=== PATIENT | female | born 1980 | race Caucasian/White ===

== ENCOUNTER 2020-08-16 13:41 | Outpatient (REF) | payer BC, SELFPAY | END 2020-08-16 13:42 | disposition home or self-care (01) | LOC: HO.HMGCLDS 13:41 | PROVIDERS: Visit Provider Internal Medicine | DX: Z20.828 Contact with and (suspected) exposure to other viral communicable diseases (principal) | CPT/HCPCS: C9803; U0003 ==

== ENCOUNTER 2020-09-13 14:26 | Outpatient (REF) | payer BC, OTHER, SELFPAY ==
[2020-09-13 14:54] LABS: COVID-19 Test Negative (Negative)
== END 2020-09-13 14:27 | disposition home or self-care (01) ==
LOC: HO.EMPCOV 14:26
PROVIDERS: Visit Provider Internal Medicine
DX: Z20.828 Contact with and (suspected) exposure to other viral communicable diseases (principal)
CPT/HCPCS: 87635; C9803

== ENCOUNTER 2020-09-26 14:16 | Outpatient (REF) | payer BC, SELFPAY | END 2020-09-26 14:17 | disposition home or self-care (01) | LOC: HO.HMGCLDS 14:16 | PROVIDERS: Visit Provider Internal Medicine | DX: Z20.828 Contact with and (suspected) exposure to other viral communicable diseases (principal) | CPT/HCPCS: C9803; U0003 ==

== ENCOUNTER 2020-10-21 11:03 | Outpatient (REF) | payer OTHER, SELFPAY ==
[2020-10-21 11:20] LABS: COVID-19 Test Negative (Negative)
== END 2020-10-21 11:04 | disposition home or self-care (01) ==
LOC: HO.EMPCOV 11:03
PROVIDERS: Visit Provider Internal Medicine
DX: Z20.822 Contact with and (suspected) exposure to COVID-19 (principal)
CPT/HCPCS: 36415; 87635; C9803

== ENCOUNTER 2020-12-23 10:35 | Outpatient (REF) | payer BC, SELFPAY | END 2020-12-23 10:36 | disposition home or self-care (01) | LOC: HO.HMGCLDS 10:35 | PROVIDERS: Visit Provider Internal Medicine | DX: Z20.822 Contact with and (suspected) exposure to COVID-19 (principal) | CPT/HCPCS: 36415; C9803; U0003; U0005 ==

== ENCOUNTER 2020-12-24 07:59 | Outpatient (REF) | payer BC, SELFPAY ==
--- NOTE | ~2020-12-24 | XR_ITS ---
EXAMINATION: XR CHEST CLINICAL INFORMATION: Shortness of breath COMPARISON: None TECHNIQUE: 2 views of the chest were obtained. FINDINGS: The lungs are well-expanded and clear. The heart size and pulmonary vascularity is normal. No gross bony abnormality seen. There are surgical elizabeth in the right lung apex from previous intervention. XR/XR chest 2V IMPRESSION: Unremarkable chest exam.
== END 2020-12-24 08:00 | disposition home or self-care (01) ==
LOC: HO.HMGCX 07:59
PROVIDERS: Visit Provider Nurse Practitioner Family
DX: R06.02 Shortness of breath (principal)
CPT/HCPCS: 71046

== ENCOUNTER 2021-01-02 11:14 | Outpatient (REF) | payer BC, SELFPAY ==
[2021-01-02 12:42] LABS: COVID-19 Test Negative (Negative); IDNOW Serial# 55D5AD1C
== END 2021-01-02 11:15 | disposition home or self-care (01) ==
LOC: HO.EMPCOV 11:14
PROVIDERS: Visit Provider Internal Medicine
DX: Z20.822 Contact with and (suspected) exposure to COVID-19 (principal)
CPT/HCPCS: 36415; 87635; C9803

== ENCOUNTER 2021-09-29 13:18 | Outpatient (REF) | payer BC, SELFPAY | END 2021-09-29 13:19 | disposition home or self-care (01) | LOC: HO.HMGCLDS 13:18 | PROVIDERS: Visit Provider Internal Medicine | DX: Z20.822 Contact with and (suspected) exposure to COVID-19 (principal) | CPT/HCPCS: C9803; U0003; U0005 ==

== ENCOUNTER 2025-02-22 09:26 | Emergency (ER) | payer BC, SELFPAY ==
--- NOTE | ~2025-02-22 | CT_ITS ---
EXAMINATION: CT HEAD WITHOUT IV CONTRAST HISTORY: pain behind R eye, hx leukemia. TECHNIQUE: Unenhanced helical CT of the head was performed per standard departmental protocol. Coronal and sagittal reformats of the head were also evaluated. One or more of the following techniques was used for dose reduction: Automated exposure control, adjustment of the mA and/or kV according to patient size, use of iterative reconstruction technique. DLP: 506 mGy-cm COMPARISON: Comparison is made with the prior examination dated 07/12/2017. FINDINGS: BRAIN: The brain parenchyma is unremarkable. There is normal arredondo/white differentiation. The ventricular system is normal in size and configuration. There is no mass effect or midline shift. No intra- or extra-axial fluid collections are identified. SINUSES: The visualized paranasal sinuses are clear. The mastoid air cells and middle ear cavities are well pneumatized. ORBITS: The visualized orbits are unremarkable, although the entire orbits are not imaged. BONES/SOFT TISSUES: The extracranial soft tissues are unremarkable. The calvarium is intact. No suspicious lytic or sclerotic lesions. CT/CT head/brain wo IV con IMPRESSION: No acute intracranial abnormality. Electronically signed by: Ga Salguero MD 02/22/2025 12:43 PM EDT
[2025-02-22 09:29] VITALS: BP 100/68; PULSE 95; RESP 16; TEMP 36.2; O2SAT 100; BMI 21.2
--- NOTE | 2025-02-22 09:37 | ED.HA ---
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 Reports pain is primarily behind her right eye. No radiation. Describes pain as sharp and constant in character. She denies any photophobia or phonophobia. Denies history of migraine headaches. She has been trying Tylenol and Aleve for the pain without improvement. Aside from the pain behind her right eye, she denies any vision changes. No trauma or injury to the eye. 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 She follows regularly with journeyman tool [facility] die [facility]. She last saw them just 2-3 months ago with normal workup. She does use artificial tears daily. Related Data Previous Rx's ?Medication ?Instructions ?Recorded tizanidine 2 mg capsule 2 mg PO BEDTIME PRN muscle 12/24/20 spasticity 20 days #20 caps qrfajmjhne-qmsaldayjxwiz-kxggymop 1 tab PO Q4-6H PRN pain (scale 02/22/25 50 mg-325 mg-40 mg tablet score 7-10) #12 tabs Allergies Allergy/AdvReac Type Severity Reaction Status Date / Time No Known Allergies Allergy Verified 02/22/25 09:30 Review of Systems Review of Systems: Yes all other systems are reviewed and are negative PMFSH Past Medical History Attestation statement: The following information was validated with the patient. Source: old records reviewed and nursing notes reviewed Physical Exam Vital Signs: Vital Signs: Last Vital Signs Temp 97.5 F 02/22/25 14:53 Pulse 66 02/22/25 14:53 Resp 16 02/22/25 14:53 BP 110/70 02/22/25 14:53 Pulse Ox 100 02/22/25 14:53 O2 Del Method Room Air 02/22/25 14:53 BMI result Body Mass Index 21.2 vital signs stable, afebrile General: Well appearing, in no acute distress. Skin: Warm, dry, intact. No rashes or lesions. Head: Normocephalic, atraumatic. EENT: Hearing is intact b/l. Moist mucous membranes.?No periorbital swelling. No enophthalmous or exopthalmous. EOMs intact without pain or entrapment. PERRLA. No photophobia. No obvious foreign body or abrasion. No conjunctival injection or chemosis. No hazy cornea. IOP OD 16, IOP OS 16. Neck: Supple without LAD Cardiac: Chest wall symmetric. RRR Lungs: Normal respiratory effort without accessory muscle use. CTA bilaterally. Back: No midline spinous or paraspinal tenderness. No step off deformity. Ext: Upper and lower extremities atraumatic, without tenderness, deformity, swelling or erythema. Neuro: AOx3. Normal speech. NIH 0. Strength 5/5 intact throughout. Sensation intact to light touch. NV intact distally. normal finger to nose, heel to santana, ambulating with steady gait Course Course Course Narrative: CBC without leukocytosis or left shift. No anemia. H&H stable. Chemistry without acute electrolyte abnormality requiring intervention. No NGUYEN. Normal liver function. Inflammatory markers WNL - GCA unlikely. CT head/brain unremarkable. > minimal improvement with migraine cocktail. > fioricet given with improvement. She longer has sharp sensation behind right eye. Now just a dull ache. > Given unremarkable workup, will send Fioricet to pharmacy for patient to take over the next few days. Educated on possible rebound headache. Advised follow up with PCP and journe[facility] tool and [employer] [facility] for further workup. patient is agreeable with this. Patient has remained stable throughout ED visit today. Discussed worrisome signs and symptoms and when to return to the ED. All questions answered at this time. Patient is agreeable with disposition and stable for discharge. Medications Administered Discontinued Medications Generic Name Dose Route Start Last Admin Trade Name Freq PRN Reason Stop Dose Admin Acetaminophen/Butalbital/Caffeine 1 tab 02/22/25 12:54 02/22/25 13:39 Butalb/Acetamin/Caff 50/325/40 Tablet PO 02/22/25 12:55 1 tab ONCE ONE Administration Diphenhydramine HCl 25 mg 02/22/25 10:26 02/22/25 11:26 Diphenhydramine Hcl 50 Mg/Ml Vial IVPUSH 02/22/25 10:27 25 mg ONCE ONE Administration Sodium Chloride 1,000 mls @ 999 mls/hr 02/22/25 10:30 02/22/25 12:35 Ns IV 02/22/25 11:30 Infused .Q1H1M NELLY Infusion Ketorolac Tromethamine 30 mg 02/22/25 10:26 02/22/25 11:23 Ketorolac Tromethamine 30 Mg/Ml Vial IVPUSH 02/22/25 10:27 30 mg ONCE ONE Administration Metoclopramide HCl 10 mg 02/22/25 10:26 02/22/25 11:19 Metoclopramide Hcl 10 Mg/2 Ml Vial IVPUSH 02/22/25 10:27 10 mg ONCE ONE Administration Medical Decision Making Medical Decision Making [facility] Narrative: 44-year-old female with pmhx significant for leukemia and 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 vital signs stable, afebrile. she is well appaering and in NAD. on exam, No periorbital swelling. No enophthalmous or exopthalmous. EOMs intact without pain or entrapment. PERRLA. No photophobia. No obvious foreign body or abrasion. No conjunctival injection or chemosis. No hazy cornea. IOP OD 16, IOP OS 16. Exam is nonfocal. Differential diagnosis includes anemia, electrolyte abnormality, dehydration, viral syndrome, migraine vs tension type headache, occular migraine, occipital neuralgia. No headache red flags. Neurologic exam without evidence of meningismus. No focal neurologic findings. Presentation not consistent with acute intracranial bleed including SAH. Presentation not consistent with acute [employer] infection including meningitis or brain abscess. Temporal arteritis unlikely, as is acute angle closure glaucoma given history and physical findings. Presentation not consistent with other acute, emergent causes of headache at this time. Plan to treat symptomatically with pain medication. No indication for LP at this time. Plan: labs, viral swabs, pain control, CT brain, reassessment Differential Diagnosis Differential Diagnoses: The differential diagnosis associated with the presentation includes as above. Admission/Observation not indicated. Lab Data [facility] Lab Attestation statement: I reviewed the patient's lab results. as above. 02/22/25 10:40 02/22/25 10:40 Labs: Lab Results 02/22/25 Range/Units 10:40 WBC 5.2 (4.8-10.8) X10*3/uL RBC 3.98 L (4.20-5.50) X10*6/uL Hgb 12.7 (12.0-16.0) g/dl Hct 37.9 (37.0-47.0) % MCV 95.2 (80.0-98.0) fL MCH 31.9 (27.0-33.0) pg MCHC 33.5 (31.0-35.0) g/dl RDW 13.2 (11.0-16.0) % Plt Count 146 L (160-400) X10*3/uL MPV 9.4 (9.4-12.3) fL Immature Gran % (Auto) 0.2 (0.0-0.4) % Neut % (Auto) 61.7 (45-73) % Lymph % (Auto) 26.2 (20-40) % Assumption % (Auto) 10.9 (2-11) % Eos % (Auto) 0.8 (0-4) % Baso % (Auto) 0.2 (0-2) % Lymph # (Auto) 1.4 (1.2-4.9) X10*3/uL Assumption # (Auto) 0.6 (0.1-1.2) X10*3/uL Eos # (Auto) 0.0 (0.0-0.4) X10*3/uL Baso # (Auto) 0.0 (0.0-0.2) X10*3/uL Abs Immat Gran (auto) 0.01 (0.00-0.03) X10*3/uL Absolute Neuts (auto) 3.2 (2.0-8.3) x10*3/uL Absolute Nucleated RBC 0.000 (0.0-0.012) X10*3/uL Nucleated RBC % (auto) 0.0 (0.0-0.2) /100WBC ESR 8 (0-20) MM/HR Sodium 138 (135-145) mmol/L Potassium 4.3 (3.3-5.1) mmol/L Chloride 106 (96-108) mmol/L Carbon Dioxide 26 (22-29) mmol/L Anion Gap 10 L (12-20) BUN 8 L (9-16) mg/dL Creatinine 0.64 (0.5-1.4) mg/dL Estim Creat Clear Calc 105.0 Estimated GFR > 60 Random Glucose 91 (60-115) mg/dL Calcium 9.8 (8.4-10.2) mg/dL Magnesium 2.0 (1.6-2.6) mg/dL Total Bilirubin 0.3 (0.0-1.0) mg/dL AST 22 (5-31) U/L ALT 14 (0-31) U/L Alkaline Phosphatase 54 (39-117) U/L C-Reactive Protein 0.16 (< or = 0.50) mg/dL Total Protein 6.9 (6.5-8.0) g/dL Albumin 4.5 (3.5-5.0) g/dL Beta HCG, Quant < 2 mIU/mL Independent Interpretation I performed an independent interpretation of an: CT Scan Interpretation: CT head/brain without mass Radiology Impression Discussion of test interpretation with radiology: I have reviewed the radiologist's reading. Radiologist Impression: Procedure(s): CT head/brain wo IV con Accession Number(s): [id number] cc: Jonas Daigle MD; More Cross~ Report Number: [id number]: Total DLP = 506.00 mGy-cm EXAMINATION: CT HEAD WITHOUT IV CONTRAST HISTORY: pain behind R eye, hx leukemia. TECHNIQUE: Unenhanced helical CT of the head was performed per standard departmental protocol. Coronal and sagittal reformats of the head were also evaluated. One or more of the following techniques was used for dose reduction: Automated exposure control, adjustment of the mA and/or kV according to patient size, use of iterative reconstruction technique. DLP: 506 mGy-cm COMPARISON: Comparison is made with the prior examination dated 07/12/2017. FINDINGS: BRAIN: The brain parenchyma is unremarkable. There is normal arredondo/white differentiation. The ventricular system is normal in size and configuration. There is no mass effect or midline shift. No intra- or extra-axial fluid collections are identified. SINUSES: The visualized paranasal sinuses are clear. The mastoid air cells and middle ear cavities are well pneumatized. ORBITS: The visualized orbits are unremarkable, although the entire orbits are not imaged. BONES/SOFT TISSUES: The extracranial soft tissues are unremarkable. The calvarium is intact. No suspicious lytic or sclerotic lesions. CT/CT head/brain wo IV con IMPRESSION: No acute intracranial abnormality. Electronically signed by: Ga Salguero MD 02/22/2025 12:43 PM EDT RP Independent Historian Clinical information obtained from an independent historian. History obtained from or confirmed by: Spouse () External Record Review External record reviewed: Inpatient record Prescription Management I considered prescription management with: Pain Medication Social Determinants Patient?s care significantly limited by Social Determinants of Health including: Other Social Determinant of Health Critical Care Time Critical Care Time Critical Care Time: No Discharge Plan Discharge Clinical Impression: Headache Patient Disposition: Home, Self-Care Instructions: General Headache (ED) Additional Instructions: You have been evaluated in the Emergency Department today for headache. Your evaluation did not show evidence of medical conditions requiring emergent intervention at this time, and your pain improved with medication in the ED. Sometimes it is difficult to explain the cause of headache but the negative workup today is reassuring. I want you to take the following medications together every 4-6 hours as needed for headache. - Fioricet After you take this medication, lie down in a dark quiet room and try to fall asleep. do not use this medication for more than 2-3 days as it can cause rebound headaches Please follow up with your primary care physician and journeyman tool and die maker in 1 week. Return to the Emergency Department if you experience worsening or uncontrolled pain, vision changes, recurrent vomiting, difficulty with normal activities, abnormal behavior, difficulty walking, numbness, weakness, or any other concerning symptoms. Prescriptions: New nzzxvzsykz-uonzgkhdkwwrd-vokr 50-325-40 mg tablet 1 tab PO Q4-6H PRN (Reason: pain (scale score 7-10)) Qty: 12 0RF No Action tizanidine 2 mg capsule 2 mg PO BEDTIME PRN (Reason: muscle spasticity) 20 Days Qty: 20 0RF Referrals: Jonas Daigle MD [Primary Care Provider] - Interventions: ED Discharge Assessment Last Done: 02/22/25 14:53 Discharge Date/Time: 02/22/25 14:59 Print Language: Setswana
--- OUTSIDE RECORDS SUMMARY | 2025-02-22 10:10 | XMS_ITS ---
Author Name [facility] Organization Unknown Care Team Organization Name Specialty Phone Email Start Date End Da [facility] 08/11/2024
[2025-02-22 10:46] LABS: MANUAL DIFF FLAG NO
[2025-02-22 10:49] LABS: Basophils Percent Auto 0.2 % (0-2); Eosinophils Percent Auto 0.8 % (0-4); Hematocrit 37.9 % (37.0-47.0); Hemoglobin 12.7 g/dl (12.0-16.0); Imm Gran Abs Auto 0.01 X10*3/uL (0.00-0.03); Imm Gran Pct Auto 0.2 % (0.0-0.4); Lymphocytes Absolute Auto 1.4 X10*3/uL (1.2-4.9); Lymphocytes Percent Auto 26.2 % (20-40); Mean Corpuscular HGB Conc 33.5 g/dl (31.0-35.0); Mean Corpuscular Hemoglobin 31.9 pg (27.0-33.0); Mean Corpuscular Volume 95.2 fL (80.0-98.0); Mean Platelet Volume 9.4 fL (9.4-12.3); Monocytes Absolute Auto 0.6 X10*3/uL (0.1-1.2); Monocytes Percent Auto 10.9 % (2-11); Neutrophils Absolute Auto 3.2 x10*3/uL (2.0-8.3); Neutrophils Percent Auto 61.7 % (45-73); Platelet Count 146 X10*3/uL (160-400); Red Blood Count 3.98 X10*6/uL (4.20-5.50); Red Cell Distribution Width 13.2 % (11.0-16.0); White Blood Count 5.2 X10*3/uL (4.8-10.8)
[2025-02-22 11:01] LABS: Alanine Aminotransferase 14 U/L (0-31); Albumin Level 4.5 g/dL (3.5-5.0); Alkaline Phosphatase 54 U/L (39-117); Anion Gap 10 (12-20); Aspartate Amino Transferase 22 U/L (5-31); Bilirubin Total 0.3 mg/dL (0.0-1.0); Blood Urea Nitrogen 8 mg/dL (9-16); C Reactive Protein 0.16 mg/dL (< or = 0.50); Calcium 9.8 mg/dL (8.4-10.2); Carbon Dioxide 26 mmol/L (22-29); Chloride 106 mmol/L (96-108); Estimated Glomerular Filt Rate > 60; Glucose Random 91 mg/dL (60-115); Potassium 4.3 mmol/L (3.3-5.1); Sodium 138 mmol/L (135-145); Total Protein 6.9 g/dL (6.5-8.0)
[2025-02-22 11:12] VITALS: BP 97/62; PULSE 69; RESP 16; TEMP 36.2; O2SAT 100
[2025-02-22] MEDS: Metoclopramide HCl 10 MG/2 ML VIAL IVPUSH (11:19)
[2025-02-22] MEDS: Ketorolac Tromethamine 30 MG/ML VIAL IVPUSH (11:23)
[2025-02-22] MEDS: diphenhydrAMINE HCL 50 MG/ML VIAL 25 MG IVPUSH (11:26)
[2025-02-22] MEDS: 0.9 % Sodium Chloride 1,000 ML 999 ML IV (11:31)
[2025-02-22 11:33] LABS: Erythrocyte Sedimentation Rate 8 MM/HR (0-20)
[2025-02-22 11:59] LABS: HCG Quantitative < 2 mIU/mL
[2025-02-22] MEDS: Butalb/Acetamin/Caff 50/325/40 TABLET 1 TAB PO (13:39)
[2025-02-22 14:00] VITALS: BP 110/70; PULSE 66; RESP 16; TEMP 36.4; O2SAT 100
[2025-02-22 14:53] VITALS: BP 110/70; PULSE 66; RESP 16; TEMP 36.4; O2SAT 100
== END 2025-02-22 14:59 | disposition home or self-care (01) ==
PROVIDERS: Physician Assistant Medical; Emergency Provider Emergency Medicine Emergency Medical Services; PCP Family Medicine
DX: R51.9 Headache, unspecified (principal); H57.11 Ocular pain, right eye; Z85.6 Personal history of leukemia; Z79.899 Other long term (current) drug therapy
CPT/HCPCS: 36415; 70450; 80053; 83735; 84702; 85025; 85652; 86140; 96361; 96374; 96375; 99284; 99285; J1200; J1885; J2765

== ENCOUNTER → 2025-02-22 10:38 | Outpatient (BNV) | payer BC, SELFPAY | PROVIDERS: Emergency Provider Emergency Medicine Emergency Medical Services; PCP Family Medicine; Visit Provider Radiology Diagnostic Radiology | DX: R51.9 Headache, unspecified (principal); H57.11 Ocular pain, right eye; Z85.6 Personal history of leukemia | CPT/HCPCS: 70450 ==

== ENCOUNTER 2025-02-24 13:09 | Emergency (ER) | payer BC, SELFPAY ==
--- NOTE | ~2025-02-24 | CT_ITS ---
CLINICAL HISTORY: headache, please eval for venous sinus thrombosis CT head with contrast Comparison: CT/NE/SR - CT HEAD/BRAIN WO IV CON - 02/22/25 12:04 EDT Findings: No intra-axial mass, midline shift, hydrocephalus, or extra-axial fluid collection. No significant atrophy-like change or white matter disease. No abnormal enhancement. Normal enhancement of the superior sagittal sinus, straight sinus, confluence and bilateral transverse sinuses and sigmoid sinuses with no evidence of thrombosis. Right transverse sinus somewhat larger than the left and this is developmental. There is no sinus or mastoid fluid. The orbits are within normal limits. No acute skull fracture. IMPRESSION: 1. No acute intracranial findings. No evidence of venous sinus thrombosis. This document has been electronically signed by: Dina Childs MD on 02/24/2025 17:41:44
[2025-02-24 13:14] VITALS: BP 95/64; PULSE 78; RESP 14; TEMP 36.5; O2SAT 100; BMI 20.9
--- NOTE | 2025-02-24 13:15 | ED_ITS ---
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 This was about 3 years ago. She has done well and has been taken off prednisone and tacrolimus. Her chemotherapy treatment apparently produced early menopause and she is maintained on hormone replacement therapy. This is her only medication at this point. The patient is here for evaluation of a headache. She has been here 2 days ago with the same complaint. The patient says that she does not have a history of headaches. She says that 4 days ago, on WednesdayFebruary 20 she woke up at 05:00 with a headache. The headache was primarily on the right side of her head. To some degree she also felt it behind her eye. She had not done anything unusual the day before. The day before has been . She said she had done very little for the whole weekend. she had done some gardening at home but nothing strenuous or unusual. She had not had any alcohol. She says that on the day the headache began she had 1st woke up at 05:00 with a headache. It was unusual for her to have a headache so she tried to go back to sleep. She slept and then woke up again at 07:00 with a headache persistent. She put up with a headache on Wednesday and Wednesday. Two days ago on she came to the emergency room because of the headache. She had a negative head CT. She also had unremarkable labs with a normal white count and differential, a normal CRP and a normal ESR. she was not febrile. She was treated empirically with a migraine cocktail of IV metoclopramide, ketorolac, and diphenhydramine. She says this really did seem to help her headache symptoms at all. She was then given a dose of Fioricet which gave some mild relief. She was discharged at that point. She says that since then she has continued to have a right-sided headache. She says that she also has some photophobia and some nausea. She has also had some sensitivity to noise.She has not vomited. She has not had any sense of neck stiffness. Her used some kind of topical temperature measuring device and he says that today she had a temperature of 100.7 degrees. No sore throat. No cough or sputum. She returned to the hospital today because of the persistence of the headache which she rates as a 10/10. She feels the pain exclusively on the right side of her head. She feels the pain behind her right eye as well. She does not have any pain in the eye itself. No ocular pain. She has photophobia but she has no sense that her vision is any different than usual. She does not have any abnormal visual phenomenon. Related Data Previous Rx's ?Medication ?Instructions ?Recorded tizanidine 2 mg capsule 2 mg PO BEDTIME PRN muscle 12/24/20 spasticity 20 days #20 caps aszxpbsien-csmxmgfowxsgi-kiytwowc 1 tab PO Q4-6H PRN pain (scale 02/22/25 50 mg-325 mg-40 mg tablet score 7-10) #12 tabs prochlorperazine maleate 10 mg 10 mg PO Q6H PRN nausea and 02/24/25 tablet vomiting #10 tabs Allergies Allergy/AdvReac Type Severity Reaction Status Date / Time No Known Allergies Allergy Verified 02/24/25 13:16 Review of Systems 2 Review of Systems: Yes all other systems are reviewed and are negative Physical Exam ED Vital Signs: Vital Signs - 24 hr 02/24/25 13:14 02/24/25 15:39 02/24/25 18:23 Temperature 97.7 F 0 F L Pulse Rate 78 68 67 Respiratory Rate 14 14 16 Blood Pressure 95/64 101/68 99/62 Pulse Oximetry 100 100 99 Oxygen Delivery Method Room Air Room Air Room Air BMI result Body Mass Index 20.9 Const Other: The patient was in a darkened room. She was wearing sunglasses. She was awake and alert with a normal mental status. She has a subdued demeanor but does not seem toxic in any way.. HENMT Other: Face is symmetrical. Mucous membranes moist. The pharynx is unremarkable. Tympanic membranes are normal bilaterally. Eyes Other: Pupils are round, equal, and reactive to light, extraocular movements are intact. Conjunctivae are clear. Eyes appear completely normal. General: appearance normal, both eyes and all related structures Neck Neck: Yes normal visual inspection, Yes full ROM, Yes no lymphadenopathy and Yes no meningeal signs Resp Effort & Inspection: normal respiratory effort Auscultation: clear to auscultation bilaterally Cardio Rate: regular rate Rhythm: regular rhythm Heart sounds: S1 normal heart sound present and S2 normal heart sound present Skin Other: Skin is dry and unremarkable, no rash Neuro Other: the patient is awake and alert. She seems photophobic but has a normal mental status. She has a supple neck. Pupils are round equal and reactive to light. Extraocular movements are intact. The face is symmetrical. Speech is clear. She moves her extremities normally. She seems to have a nonfocal neurological exam. General: no meningeal signs Extrem Other: No peripheral edema. Course Course Course Narrative: RME performed by Alecia Santamaria PA-C. Patient is a 44 year old assigned female at presenting to the emergency department with a continued / persistent headache. Detailed physical exam and review of systems are deferred to the product manager e commerce. Labs ordered. Patient placed back in the waiting room pending room availability and results. Medications Administered Discontinued Medications Generic Name Dose Route Start Last Admin Trade Name Codi PRN Reason Stop Dose Admin Dexamethasone Sodium Phosphate 8 mg 02/24/25 16:29 02/24/25 17:06 Dexamethasone Sod Phosphate 4 Mg/Ml Vial IVPUSH 02/24/25 16:30 8 mg ONCE ONE Administration Diphenhydramine HCl 25 mg 02/24/25 15:00 02/24/25 15:38 Diphenhydramine Hcl 50 Mg/Ml Vial IVPUSH 02/24/25 15:01 25 mg ONCE ONE Administration Sodium Chloride 1,000 mls @ 999 mls/hr 02/24/25 15:15 02/24/25 16:51 Ns IV 02/24/25 16:15 Infused .Q1H1M NELLY Infusion Magnesium Sulfate 2 gm in 50 mls @ 150 mls/hr 02/24/25 16:29 02/24/25 18:08 Magnesium Sulfate/H2o IV 02/24/25 16:48 Infused ONCE ONE Infusion Iohexol 100 ml 02/24/25 16:57 02/24/25 16:58 Iohexol 350 Mg/Ml 100 Ml Infus..Btl IV 02/24/25 16:58 85 ml ONCE ONE Administration Ketorolac Tromethamine 10 mg 02/24/25 15:00 02/24/25 15:34 Ketorolac Tromethamine 15 Mg/Ml Vial IVPUSH 02/24/25 15:01 10 mg ONCE ONE Administration Prochlorperazine Edisylate 10 mg 02/24/25 15:00 02/24/25 15:37 Prochlorperazine Edisylate 10 Mg/2 Ml Vial IVPUSH 02/24/25 15:01 10 mg ONCE ONE Administration Medical Decision Making Medical Decision Making [facility] Narrative: The patient is a very pleasant 44-year-old woman who presents for a 2nd time to the emergency room for evaluation of the same headache syndrome. She does not have a history of headaches. No history of migraine headaches. She has a history of leukemia which was managed with a bone marrow transplant which was apparently successful. She is not on any immunosuppressants currently. Her only medication is hormone replacement therapy with a combined estrogen/ progesterone regimen. today is the 5th day of this headache. She woke up with a headache on Wednesday morning, February 20. the headache is a unilateral headache on the right side of her head. She perceives the pain primarily behind the right eye. She has had some associated nausea but no vomiting. She does not have any pain of the eye itself and she does not have any sense that her vision in either eye is any different than usual. She feels her vision is normal. She has had no unusual visual phenomenon. She has had no neck stiffness or sense of neck stiffness. The headache was present when she awoke on February 20 and therefore she can not say if this was an abrupt onset headache. She has no specific neurological symptoms associated with this headache. The patient was here 2 days ago and had a negative head CT. The patient was treated for a possible migraine headache with metoclopramide, ketorolac, and diphenhydramine with no significant improvement. She had some minimal improvement after receiving a dose of Fioricet. She was then discharged and she returns today because of the persistence of the headache. Clinically the patient's exam does not seem remarkably concerning. She has no neck stiffness whatsoever. She has no concerning ocular or visual findings. Her mental status is normal. Her vital signs are normal. She is not hypertensive. Basic labs were unremarkable with a normal white count and unremarkable differential. She has a normal CRP and ESR. The patient was treated initially with prochlorperazine, ketorolac, diphenhydramine, and IV fluids. She had possibly mild improvement in her headache from a 10/10 to a 6/10. Given her history of leukemia and also her history of hormone replacement therapy by thought it would be reasonable to ensure that she did not have a venous sinus thrombosis as a cause of her headache and so ordered a CT of the head with IV contrast. She was also at that point given 8 mg of IV dexamethasone and 2 g of IV magnesium. The CT with IV contrast was negative. At that point I had discussed the possibility of doing a spinal tap as well. However she reported significant improvement in her headache at that time after receiving the dexamethasone and magnesium. Given that she felt better and looked better by ultimately did not feel that a spinal tap was required at this point. I do not think her history of this headache or her physical exam is highly suggestive of a subarachnoid hemorrhage. I do not think her history or physical exam is highly suggestive of any kind of meningitis. Therefore after discussion with the patient and her I decided to defer doing a spinal tap today. The patient will be discharged. She has a local wood setter. I have recommended that she contact her wood setter on Wednesday to see if she can get an appointment to see of the wood setter has any insight into her headache etiology. Additionally she should follow up with her PCP. If she continues to feel quite bad however she should return and probably have a spinal tap. Lab Data 02/24/25 14:02 02/24/25 14:02 Labs: Lab Results 02/24/25 02/24/25 Range/Units 14:02 15:28 WBC 5.2 (4.8-10.8) X10*3/uL RBC 3.99 L (4.20-5.50) X10*6/uL Hgb 12.9 (12.0-16.0) g/dl Hct 37.9 (37.0-47.0) % MCV 95.0 (80.0-98.0) fL MCH 32.3 (27.0-33.0) pg MCHC 34.0 (31.0-35.0) g/dl RDW 13.2 (11.0-16.0) % Plt Count 158 L (160-400) X10*3/uL MPV 10.8 (9.4-12.3) fL Immature Gran % (Auto) 0.6 H (0.0-0.4) % Neut % (Auto) 66.0 (45-73) % Lymph % (Auto) 20.2 (20-40) % Guadalupe % (Auto) 12.0 H (2-11) % Eos % (Auto) 1.0 (0-4) % Baso % (Auto) 0.2 (0-2) % Lymph # (Auto) 1.0 L (1.2-4.9) X10*3/uL [place]upe # (Auto) 0.6 (0.1-1.2) X10*3/uL Eos # (Auto) 0.1 (0.0-0.4) X10*3/uL Baso # (Auto) 0.0 (0.0-0.2) X10*3/uL Abs Immat Gran (auto) 0.03 (0.00-0.03) X10*3/uL Absolute Neuts (auto) 3.4 (2.0-8.3) x10*3/uL Absolute Nucleated RBC 0.000 (0.0-0.012) X10*3/uL Nucleated RBC % (auto) 0.0 (0.0-0.2) /100WBC ESR 9 (0-20) MM/HR D-Dimer High Sensitivty < 150 NG/ML Sodium 139 (135-145) mmol/L Potassium 4.7 (3.3-5.1) mmol/L Chloride 104 (96-108) mmol/L Carbon Dioxide 26 (22-29) mmol/L Anion Gap 14 (12-20) BUN 10 (9-16) mg/dL Creatinine 1.03 (0.5-1.4) mg/dL Estim Creat Clear Calc 64.7 Estimated GFR 58 Random Glucose 107 (60-115) mg/dL Calcium 9.5 (8.4-10.2) mg/dL Magnesium 2.0 (1.6-2.6) mg/dL Total Bilirubin 0.3 (0.0-1.0) mg/dL AST 22 (5-31) U/L ALT 16 (0-31) U/L Alkaline Phosphatase 58 (39-117) U/L C-Reactive Protein 0.21 (< or = 0.50) mg/dL Total Protein 6.8 (6.5-8.0) g/dL Albumin 4.5 (3.5-5.0) g/dL Discharge Plan Discharge Clinical Impression: Headache Patient Disposition: Home, Self-Care Additional Instructions: Your testing in the emergency room today is all very reassuring from the point of view of a dangerous process. Since you are feeling better at this point I think a spinal tap is unlikely to reveal any dangerous process. Please rest and take it easy tonight. Try to get some sleep. Please plan on contacting your [place] wood setter on Wednesday to arrange a follow up appointment. I think it would be good for an wood setter to see you to ensure that they do not have any insight into your headache. Also follow up with your primary care doctor. If you have recurrence of headache you may try using the Fioricet previously prescribed in combination with ibuprofen and also with the prochlorperazine I have prescribed today. However if you have any significant worsening of your headache you should return to the emergency room for additional evaluation. Prescriptions: New prochlorperazine maleate 10 mg tablet 10 mg PO Q6H PRN (Reason: nausea and vomiting) Qty: 10 0RF No Action tizanidine 2 mg capsule 2 mg PO BEDTIME PRN (Reason: muscle spasticity) 20 Days Qty: 20 0RF vzsggfolip-jjukklnuonvap-xzkt 50-325-40 mg tablet 1 tab PO Q4-6H PRN (Reason: pain (scale score 7-10)) Qty: 12 0RF Referrals: Senait Wilder MD [Physician] - (headaches) Jonas Daigle MD [Primary Care Provider] - (headaches) Interventions: ED Discharge Assessment Last Done: 02/24/25 18:23 Discharge Date/Time: 02/24/25 18:24 Print Language: Romanian
[2025-02-24 14:21] LABS: Basophils Percent Auto 0.2 % (0-2); Eosinophils Absolute Auto 0.1 X10*3/uL (0.0-0.4); Hematocrit 37.9 % (37.0-47.0); Hemoglobin 12.9 g/dl (12.0-16.0); Imm Gran Abs Auto 0.03 X10*3/uL (0.00-0.03); Imm Gran Pct Auto 0.6 % (0.0-0.4); Lymphocytes Percent Auto 20.2 % (20-40); Mean Corpuscular Hemoglobin 32.3 pg (27.0-33.0); Mean Platelet Volume 10.8 fL (9.4-12.3); Monocytes Absolute Auto 0.6 X10*3/uL (0.1-1.2); Neutrophils Absolute Auto 3.4 x10*3/uL (2.0-8.3); Red Blood Count 3.99 X10*6/uL (4.20-5.50); Red Cell Distribution Width 13.2 % (11.0-16.0); White Blood Count 5.2 X10*3/uL (4.8-10.8)
[2025-02-24 14:22] LABS: Platelet Count 158 X10*3/uL (160-400)
[2025-02-24 14:48] LABS: Alanine Aminotransferase 16 U/L (0-31); Albumin Level 4.5 g/dL (3.5-5.0); Anion Gap 14 (12-20); Aspartate Amino Transferase 22 U/L (5-31); Bilirubin Total 0.3 mg/dL (0.0-1.0); Blood Urea Nitrogen 10 mg/dL (9-16); C Reactive Protein 0.21 mg/dL (< or = 0.50); Calcium 9.5 mg/dL (8.4-10.2); Carbon Dioxide 26 mmol/L (22-29); Chloride 104 mmol/L (96-108); Creatinine Clr Calc Pharmacy 64.7; Erythrocyte Sedimentation Rate 9 MM/HR (0-20); Estimated Glomerular Filt Rate 58; Glucose Random 107 mg/dL (60-115); Potassium 4.7 mmol/L (3.3-5.1); Sodium 139 mmol/L (135-145); Total Protein 6.8 g/dL (6.5-8.0)
[2025-02-24 14:59] LABS: Alkaline Phosphatase 58 U/L (39-117)
[2025-02-24] MEDS: 0.9 % Sodium Chloride 1,000 ML 999 ML IV (15:34)
[2025-02-24] MEDS: Ketorolac Tromethamine 15 MG/ML VIAL 10 MG IVPUSH (15:34)
[2025-02-24] MEDS: Prochlorperazine Edisylate 10 MG/2 ML VIAL IVPUSH (15:37)
[2025-02-24] MEDS: diphenhydrAMINE HCL 50 MG/ML VIAL 25 MG IVPUSH (15:38)
[2025-02-24 15:39] VITALS: BP 101/68; PULSE 68; RESP 14; O2SAT 100
[2025-02-24 15:47] LABS: D Dimer High Sensitivity < 150 NG/ML
[2025-02-24] MEDS: iohexoL 350 MG/ML 100 ML INFUS..BTL IV (16:58)
[2025-02-24] MEDS: Magnesium Sulfate/H2O 2 GM/50 ML PIGGYBACK IV (17:05)
[2025-02-24] MEDS: dexAMETHasone sod phosphate 4 MG/ML VIAL 8 MG IVPUSH (17:06)
[2025-02-24 18:23] VITALS: BP 99/62; PULSE 67; RESP 16; TEMP -17.7; TEMP 0; O2SAT 99
== END 2025-02-24 18:24 | disposition home or self-care (01) ==
PROVIDERS: Physician Assistant Medical; Emergency Provider Emergency Medicine; PCP Family Medicine
DX: R51.9 Headache, unspecified (principal); Z85.6 Personal history of leukemia
CPT/HCPCS: 36415; 70460; 80053; 83735; 85025; 85379; 85652; 86140; 96361; 96365; 96375; 99284; J0737; J1100; J1200; J1885; J3475; Q9967

== ENCOUNTER → 2025-02-24 16:31 | Outpatient (BNV) | payer BC, SELFPAY | PROVIDERS: Emergency Provider Emergency Medicine; PCP Family Medicine; Visit Provider Specialist | DX: R51.9 Headache, unspecified (principal) | CPT/HCPCS: 70460 ==

== ENCOUNTER 2025-02-25 23:25 | Emergency (ER) | payer BC, SELFPAY ==
[2025-02-25 23:27] VITALS: BP 126/75; PULSE 73; RESP 20; TEMP 36.8; O2SAT 100; BMI 20.2
--- NOTE | 2025-02-25 23:51 | ED_ITS ---
HPI - Headache General Chief Complaint: Headache Stated Complaint: severe headaches Time Seen by Provider: 02/25/25 23:40 Source: patient Mode of arrival: ambulatory Limitations: no limitations History of Present Illness ED Provider: HPI Narrative: Patient with history of leukemia in remission for last 2 years has been having headache for last 1 week localized to the right forehead been here 2 times treated has a migraine headache since yesterday patient noticed clear blisters on the left forehead spreading to the left eyelid no visual changes Related Data Previous Rx's ?Medication ?Instructions ?Recorded tizanidine 2 mg capsule 2 mg PO BEDTIME PRN muscle 12/24/20 spasticity 20 days #20 caps xkervpvrgj-liwusfaiogrbi-tiaeuluo 1 tab PO Q4-6H PRN pain (scale 02/22/25 50 mg-325 mg-40 mg tablet score 7-10) #12 tabs prochlorperazine maleate 10 mg 10 mg PO Q6H PRN nausea and 02/24/25 tablet vomiting #10 tabs gabapentin 300 mg capsule 300 mg PO BID PRN pain (scale 02/26/25 score 4-6) #20 caps tramadol 50 mg tablet 50 mg PO Q6H PRN pain #20 tabs 02/26/25 valacyclovir 1 gram tablet 1,000 mg PO TID #20 tabs 02/26/25 (Valtrex) Allergies Allergy/AdvReac Type Severity Reaction Status Date / Time No Known Allergies Allergy Verified 02/25/25 23:29 Review of Systems Review of Systems: Yes all other systems are reviewed and are negative PMFSH Social History Social History Advance Directives: No Advance Directives Information Provided: No Physical Exam Vital Signs: Vital Signs: Last Vital Signs Temp 98.3 F 02/25/25 23:27 Pulse 73 02/25/25 23:27 Resp 20 02/25/25 23:27 BP 126/75 02/25/25 23:27 Pulse Ox 100 02/25/25 23:27 O2 Del Method Room Air 02/25/25 23:27 BMI result Body Mass Index 20.2 Appearance: Alert. Oriented X3. No acute distress. Eyes: PERRLA, No Nystagmus cornea intact no erythema of the limbus or scleral conjunctiva fluorescein uptake is negative ENT: Pharynx normal. Oral Mucosa moist Neck: Normal inspection. Neck supple. CVS: Normal heart rate and rhythm. Pulses normal. Respiratory: No respiratory distress. Equal air entry bilateral, no wheezing/rales/rhonchi Abdomen: Soft and nontender. Bowel sounds are present, no mass palpable, no CVA tenderness Skin: Skin warm and dry. Vesicular lesions on the right forehead spreading to the upper eyelid no lesion on the tip of the nose Extremities: No lower extremity edema. No calf tenderness Neuro: Oriented X 3. No motor deficit. Medical Decision Making Medical Decision Making [facility] Narrative: Patient's herpes zoster of right forehead sparing the cornea at this time was seen here earlier for similar headache on 02/24 and 02/22 but she did not have any rash at that time vesicular rash started last night. Will start patient on Valtrex and gabapentin for pain advised to follow with oncology social worker to be sure that cornea is not involved Discharge Plan Discharge Clinical Impression: Herpes zoster Patient Disposition: Home, Self-Care Instructions: Shingles (ED) Additional Instructions: Take the Valtrex as prescribed for your rash Gabapentin and tramadol for pain You need to see oncology social worker to confirm that your cornea is not involved from the herpes Prescriptions: New valacyclovir [Valtrex] 1 gram tablet 1,000 mg PO TID Qty: 20 0RF gabapentin 300 mg capsule 300 mg PO BID PRN (Reason: pain (scale score 4-6)) Qty: 20 0RF tramadol 50 mg tablet 50 mg PO Q6H PRN (Reason: pain) Qty: 20 0RF No Action tizanidine 2 mg capsule 2 mg PO BEDTIME PRN (Reason: muscle spasticity) 20 Days Qty: 20 0RF gubvewzvzm-gecojsgfjaiji-rsgq 50-325-40 mg tablet 1 tab PO Q4-6H PRN (Reason: pain (scale score 7-10)) Qty: 12 0RF prochlorperazine maleate 10 mg tablet 10 mg PO Q6H PRN (Reason: nausea and vomiting) Qty: 10 0RF Referrals: Danilo Ovalles [Physician] - 1 day Print Language: Telugu
[2025-02-26 00:30] VITALS: BP 103/68; PULSE 62; RESP 14; TEMP 37.2; O2SAT 98
[2025-02-26] MEDS: traMADoL HCL 50 MG TABLET PO (00:58)
[2025-02-26] MEDS: Gabapentin 300 MG CAPSULE PO (00:58)
[2025-02-26] MEDS: Fluorescein Sodium STRIP 1 STRIP EYE-RIGHT (00:58)
[2025-02-26] MEDS: valACYclovir HCL 1,000 MG TABLET 1000 MG PO (00:58)
[2025-02-26 01:01] VITALS: BP 103/68; PULSE 62; RESP 14; TEMP 37.2; O2SAT 98
== END 2025-02-26 01:05 | disposition home or self-care (01) ==
PROVIDERS: Emergency Provider Internal Medicine; PCP Family Medicine
DX: R51.9 Headache, unspecified (principal)
CPT/HCPCS: 99283